=== PATIENT | male | born 1960 | race Two or more races ===

== ENCOUNTER 2017-04-03 04:24 | Emergency (ER) | payer MEDICAID ==
[~2017-04-03] VITALS: Ht 162.6 cm; Wt 74.8 kg
[2017-04-03] MEDS ORDERED: ONDANSETRON ODT 4 MG TAB.RAPDIS SL ONE (04:45)
[2017-04-03] MEDS ORDERED: HYDROMORPHONE 1 MG/1 ML DISP.SYRIN IM ONE (04:45)
[2017-04-03] MEDS ORDERED: ATOR40TA PO (04:48)
[2017-04-03] MEDS ORDERED: METF500T4 PO (04:48)
[2017-04-03] MEDS ORDERED: LISI10TA5 PO (04:48)
[2017-04-03] MEDS ORDERED: LET TOPICAL SOLUTION 8 ML UDC TP ONE (05:00)
[2017-04-03] MEDS ORDERED: LET TOPICAL SOLUTION 8 ML UDC ONE (05:02)
[2017-04-03] MEDS ORDERED: ONDANSETRON ODT 4 MG TAB.RAPDIS ONE (05:03)
[2017-04-03] MEDS ORDERED: HYDROMORPHONE 2 MG/1 ML DISP.SYRIN ONE (05:04)
--- NOTE | 2017-04-03 05:35 | NUR ---
Patient discharged to home in stable conditon. Written and verbal after care instructions given. Patient verbalizes understanding of instructions. PATIENT LEFT WITH STABLE GAIT.
[2017-04-03 05:36] VITALS: BP 137/80
== END 2017-04-03 05:36 | disposition home or self-care (01) ==
LOC: ER 04:29
DX: K64.9 Unspecified hemorrhoids (principal); I10 Essential (primary) hypertension; E78.5 Hyperlipidemia, unspecified; E11.9 Type 2 diabetes mellitus without complications
CPT/HCPCS: A4663; J1170; Q0162